=== PATIENT | male | born 1955 | race Caucasian/White ===

== ENCOUNTER 2021-03-04 11:21 | Inpatient (IN) | payer OTHER ==
[2021-03-04] MEDS ORDERED: IV FLUID CONTINUATION 550 ML IV ONE (11:26)
[2021-03-04] MEDS ORDERED: LIDOCAINE 1% INJ 10MG/ML (20 ML MDV) SQ ONE (11:37)
[2021-03-04] MEDS ORDERED: fentaNYL (PF) 50 MCG/ML 2 ML AMP IV ONE ×2 (11:40)
[2021-03-04] MEDS ORDERED: CLOPIDOGREL 75 MG TAB PO ONE (12:01)
[2021-03-04] MEDS ORDERED: NOREPINEPHRINE 4 MG in SODIUM CHLORIDE 0.9% 250 ML IV ONE (12:17)
[2021-03-04] MEDS ORDERED: IOPAMIDOL-370 125ML BTL INJ ONE (12:18)
[2021-03-04] MEDS ORDERED: ONDANSETRON 4 MG/2 ML VIAL IVP ONE (12:21)
[2021-03-04] MEDS ORDERED: TIROFIBAN 12.5MG-250ML NS 250 ML IV ONE (12:33)
[2021-03-04] MEDS ORDERED: TIROFIBAN BOLUS 12.5MG/250 ML BAG IV ONE (12:33)
[2021-03-04] MEDS ORDERED: SODIUM CHLORIDE 0.9% 1,000 ML IV ONE (12:42)
[2021-03-04] MEDS ORDERED: IOPAMIDOL-370 100ML BTL INJ ONE (12:49)
[2021-03-04] MEDS ORDERED: RX INFO: IV CONTRAST WAS GIVEN 1 EACH MISC MISCELLANE PRN (12:50)
[2021-03-04] MEDS ORDERED: NITROGLYCERIN SL TABS 0.4 MG TAB SUBLINGUAL PRN (12:50)
[2021-03-04] MEDS ORDERED: ZOLPIDEM 5 MG TAB PO PRN (12:50)
[2021-03-04] MEDS ORDERED: ATROPINE SULFATE 0.1 MG/ML 10ML SYRINGE IV PRN (12:50)
[2021-03-04] MEDS ORDERED: MAG HYDROX/AL HYDROX/SIMETH 30 ML CUP PO PRN (12:50)
--- NOTE | 2021-03-04 14:33 | CC ---
CARDIAC CATHETERIZATION REPORT INDICATION: Acute inferoposterior wall DE in a patient with known CAD, status post recent angioplasty. PROCEDURE NOTE: After obtaining informed consent, left heart catheterization and coronary angiogram were performed via the right femoral artery using standard Allyssa catheters. Patient tolerated the procedure well without any obvious immediate complications. Patient received moderate conscious sedation. Total sedation time was 13 minutes. FINDING: HEMODYNAMICS: Left ventricular end-diastolic pressure is 12 mm. There is no significant gradient across the aortic valve. LEFT VENTRICULOGRAM: Left ventriculogram was not performed. ANGIOGRAPHIC DATA: Left main coronary artery. Left main coronary artery appears calcified but is free of significant stenosis. Divides into left anterior descending coronary artery and circumflex coronary artery. There is an area of plaque rupture and a 95% stenosis involving the ostial portion of the circumflex coronary artery. LAD was previously stented both in the proximal and mid portions. In between the two stents there is a 40% to 50% stenosis. Right coronary artery is a large dominant vessel. There is a 40% mid RCA lesion. CONCLUSIONS: Three-vessel coronary artery disease as described above with patent stent within the LAD and an acute plaque rupture involving the ostial portion of the circumflex coronary artery, which is the vessel related to his myocardial infarction. Dr. Jacobs, the on- call alterations workroom clerk, is here. He evaluated the angiogram and will attempt angioplasty of the circumflex coronary artery. At the end of my procedure patient is stable hemodynamically and free of any complications. MMLAKEL / IJN: [id number] /
[2021-03-04 16:13] LABS: Glucose,Whole Blood 103 mg/dL (75-99)
[2021-03-04] MEDS: TIROFIBAN 12.5MG-250ML NS 250 ML IV SCH (16:30)
--- NOTE | 2021-03-04 17:10 | P.PRCINT ---
Percutaneous Coronary Int. - Percutaneous Coronary Intervention Percutaneous Coronary Intervention: PROCEDURES PERFORMED: Left coronary angiography, kissing balloon angioplasty of left main into LAD and circumflex bifurcation with 3.25 x 12mm NC and 3.0 x 15mm balloon respectively INDICATION: STEMI HISTORY: Patient is a pleasant 65 year old male with history of lung cancer apparently in remission, CAD with recent PCI at [facility] approximately 4 months ago who presented with acute onset chest pain at [facility] and was found to have inferoposterior TN. He was therefore transferred to [facility] and diagnostic catheterization showed patent left main into LAD stent however thrombosis at the jailed off circumflex. Patient was unsure if he had in fact been taking Plavix recently. PROCEDURE: After the risks, benefits and alternatives of the above mentioned procedure explained in detail with the patient, informed consent was obtained. Patient had already been taken to the catheterization lab and prepped and draped in usual fashion. A 6-Albanian sheath had been placed in the right femoral artery. A 6Fr FL 3.5 guide was used to engage the left main. A 0.014 BMW wire was advanced into the LAD and a 0.014 whisper wire was advanced into the circumflex. The ostium of the circumflex/ jailed stent was dilated with a 1.5 x 12 then 2.0 x 12mm balloon. Aggrastat was given secondary to thrombus burden. Next kissing balloon angioplasty was performed of the circumflex and the left main into LAD with a 3.0 x 15mm balloon in left main to circumflex and a 3.25 x 12mm NC balloon in the left main to LAD. Patient did have mild hypotension during the case which was improved with Levophed. Pre intervention there was 99% circumflex stenosis and JAQUI 2 flow and post intervention there was JAQUI 3 flow and < 10% stenosis. The patient tolerated the procedure well and hypotension had predominantly resolved, on a small dose of Levophed by the end of the case. The right femoral sheath was left in place to be pulled at a later time. Patient was transported back to the post catheterization holding area in stable condition. Conscious Sedation: Patient was monitored under the direct supervision of vision of myself for conscious sedation using Versed and fentanyl for a total duration of 53 minutes SELECTIVE CORONARY ARTERIOGRAPHY: LEFT MAIN: The left main is a large caliber vessel which bifurcates into the LAD and circumflex. There is a patent stent which extends from the mid left main into the proximal LAD without significant stenosis. LEFT ANTERIOR DESCENDING CORONARY ARTERY: LAD is a large caliber vessel which wraps around the apex. The proximal left main to LAD stent has no significant stenosis. There is a 50-60% stenosis just distal to a small to moderate caliber diagonal 1 branch. There is a long mid LAD stented segment without significant stenosis. There are otherwise mild luminal irregularities. LEFT CIRCUMFLEX CORONARY ARTERY: Left circumflex is a moderate caliber vessel with a proximal 99% stenosis at the "jailed" off ostium of the circumflex. Otherwise there are mild 20% stenosis of the mid circufmlex and 30% stenosis of the proximal OM1. RIGHT CORONARY ARTERY: Not imaged, see diagnostic cath report. FINAL IMPRESSION: 1. CAD as described above with ostial circumflex 99% thrombosis at the site of "jailed" circumflex, s/p kissing balloon angioplasty left main to LAD and circumflex. PLAN: 1. Aggressive risk factor modification per most recent ACC/AHA guidelines. 2. Continue dual antiplatelets with aspirin and Plavix for 12 months. Question if patient has been taking Plavix and thrombosis may have been related if Plavix was discontinued. Continue Aggrastat for 12 hours given thrombus burden.
[2021-03-04] MEDS: MORPHINE SULFATE 2 MG/ML SYRINGE IVP PRN (18:25)
[2021-03-05] MEDS: MORPHINE SULFATE 2 MG/ML SYRINGE IVP PRN ×2 (03:40→14:27)
[2021-03-05 06:39] LABS: African American GFR (CKD) >90 (>60 ml/min/1.73 sqM); Non-African American GFR(CKD) >90 (>60 ml/min/1.73 sqM)
--- NOTE | 2021-03-05 08:27 | XR ---
EXAMINATION TYPE: XR chest 1V portable DATE OF EXAM: 03/05/2021 COMPARISON: NONE HISTORY: Difficulty breathing, history of lung carcinoma TECHNIQUE: Single frontal view of the chest is obtained. FINDINGS: Apical pleural thickening is greater on the left than on the right, there is some volume l oss, tracheal deviation towards the left chest. There is a port in the left pectoral region, meche ca theter courses via subclavian approach to the region of the cavoatrial junction. Tumor mass is suspec celine the left hilar region. Interstitium is increased. Heart size is within normal limits. There is no pleural effusion or pneumothorax evident. IMPRESSION: Findings consistent with lung carcinoma. Interstitial lung disease.
[2021-03-05] MEDS: CLOPIDOGREL 75 MG TAB PO SCH (09:49)
[2021-03-05] MEDS: ASPIRIN 81 MG PO SCH (09:49)
--- NOTE | 2021-03-05 10:34 | P.CNPUL ---
History of Present Illness Consult date: 03/05/21 Reason for consult: hypoxemia, lung mass, other (STEMI) History of present illness: This is a 65-year-old male patient with known history of lung cancer who has been in remission, also known to have CAD with recent PCI at [facility] there was an approximately 4 months ago, and the patient presented initially to [facility] with chest pain and the patient was found to have inferior posterior DC. He was transferred to [facility] and he underwent a diagnostic catheterization and the patient was found to have patent left main to LAD stent and the patient was found to have disease involving the left circumflex with a proximal 99% stenosis and a jailed off ostium. He also had 50-60% stenosis just distal to the stent involving the LAD. There was a long mid LAD stented segment without any significant stenosis. As such, the patient underwent balloon angioplasty of the left main to LAD and circumflex and medical treatment was offered to this patient and he was estimated to the aspirin and Plavix. He is currently in intensive care unit. He is hemodynamically stable and free of any chest pain. His chest x-ray reveals a left upper lobe opacity with a volume loss probably related to a previous lung cancer treatment/radiation. The patient is also reported in the left upper chest area. Is currently on 2 L of oxygen by nasal cannula with a pulse ox of 98%. Upon further questioning, the patient is not sure of the type of the lung cancer that he had. He thinks that he to take a combination of chemotherapy and radiation therapy. He is not sure follow-up CAT scan has been done. The chest x-ray shows postradiation changes in the left upper lobe. Right lung is essentially clear. He has a congested cough. He is a smoker. Uses Spiriva at home. He is on no oxygen. He used to live around [facility] and currently he is living out of his car. He seems to be homeless at this point in time. He was at [facility] where he was staying and he was doing some fishing Review of Systems Constitutional: Denies chills, Denies fever Eyes: denies as per HPI, denies blurred vision, denies bulging eye, denies decreased vision, denies diplopia, denies discharge, denies dry eye, denies irritation, denies itching, denies pain, denies photophobia, denies loss of peripheral vision, denies loss of vision, denies tunnel vision/blind spots Ears: deny: decreased hearing, ear discharge, earache, tinnitus Ears, nose, mouth and throat: Denies headache, Denies sore throat Breasts: absent: as per HPI, gynecomastia Cardiovascular: Reports decreased exercise tolerance, Reports dyspnea on exertion Respiratory: Reports cough, Reports dyspnea, Reports wheezing Gastrointestinal: Reports as per HPI Genitourinary: Reports as per HPI Musculoskeletal: Reports as per HPI Musculoskeletal: absent: ankle pain, ankle stiffness, ankle swelling, as per HPI, elbow pain, elbow stiffness, elbow swelling, foot pain, foot stiffness, foot swelling, hand pain, hand stiffness, hand swelling, hip pain, hip stiffness, hip swelling, knee pain, knee stiffness, knee swelling, shoulder pain, shoulder stiffness, shoulder swelling, wrist pain, wrist stiffness, wrist swelling Integumentary: Reports as per HPI Neurological: Reports as per HPI Psychiatric: Reports as per HPI Endocrine: Reports as per HPI Hematologic/Lymphatic: Reports as per HPI Past Medical History Past Medical History: Coronary Artery Disease (CAD), Cancer, COPD, GERD/Reflux, Myocardial Infarction (DC), Vascular Disorder Additional Past Medical History / Comment(s): Lung cancer tx with chemo/radiation and the treatment was done at [facility] in [place]. Patient is also known to have COPD. Last Myocardial Infarction Date:: "a few months ago" History of Any Multi-Drug Resistant Organisms: None Reported Past Surgical History: Heart Catheterization With Stent Past Anesthesia/Blood Transfusion Reactions: No Reported Reaction Date of Last Stent Placement:: unkown "a month ago" Smoking Status: Current every day smoker Medications and Allergies Home Medications Medication Instructions Recorded Confirmed Type Albuterol Sulfate [Ventolin HFA] 2 puff INHALATION RT-Q6H PRN 03/04/21 03/04/21 History Clopidogrel [Plavix] 75 mg PO DAILY 03/04/21 03/04/21 History Ergocalciferol [Vitamin D2 (1250 1,250 mcg PO ALEGRE 03/04/21 03/04/21 History Mcg = 24888 Iu)] Folic Acid 1 mg PO DAILY 03/04/21 03/04/21 History Isosorbide Mononitrate ER [Imdur] 30 mg PO DAILY 03/04/21 03/04/21 History Metoprolol Tartrate [Lopressor] 25 mg PO DAILY 03/04/21 03/04/21 History Nitroglycerin Sl Tabs [Nitrostat] 0.4 mg SUBLINGUAL Q5M PRN 03/04/21 03/04/21 History Omeprazole 20 mg PO DAILY 03/04/21 03/04/21 History Simvastatin [Zocor] 40 mg PO HS 03/04/21 03/04/21 History Sucralfate [Carafate] 1 gm PO DAILY 03/04/21 03/04/21 History Tiotropium 18 Mcg/Puff [Spiriva] 1 puff INHALATION RT-DAILY 03/04/21 03/04/21 History Allergies Allergy/AdvReac Type Severity Reaction Status Date / Time No Known Allergies Allergy Verified 03/04/21 19:06 Physical Exam Vitals: Vital Signs Temp Pulse Pulse Resp BP BP Pulse Ox 03/05/21 09:00 79 12 100/56 98 03/05/21 08:00 98.4 F 72 20 91/53 95 03/05/21 07:00 73 17 98/57 91 L 03/05/21 06:00 70 16 90/48 93 L 03/05/21 05:00 75 21 91/57 92 L 03/05/21 04:00 98.3 F 67 25 H 93/51 93 L 03/05/21 03:00 67 22 95/54 93 L 03/05/21 02:00 69 22 100/59 94 L 03/05/21 01:00 68 23 112/69 92 L 03/05/21 00:18 70 20 112/69 91 L 03/05/21 00:00 98 F 73 18 101/55 94 L 03/04/21 23:00 73 22 117/71 94 L 03/04/21 22:00 70 20 121/63 94 L 03/04/21 21:00 68 22 117/63 93 L 03/04/21 20:00 98.1 F 66 15 110/65 95 03/04/21 19:00 98.4 F 72 21 109/59 95 03/04/21 18:50 68 15 109/59 95 03/04/21 18:40 69 28 H 110/53 95 03/04/21 18:30 67 27 H 115/72 96 03/04/21 18:20 66 15 115/72 95 03/04/21 18:10 62 23 114/66 96 03/04/21 18:00 65 24 106/64 96 03/04/21 17:50 74 21 106/64 93 L 03/04/21 17:40 65 6 L 117/71 96 03/04/21 17:30 62 14 117/65 96 03/04/21 17:20 68 27 H 117/65 95 03/04/21 17:10 67 23 121/64 96 03/04/21 17:00 98.4 F 64 70 16 114/72 121/64 96 03/04/21 16:50 62 20 114/72 96 03/04/21 16:40 65 14 104/74 96 03/04/21 16:30 64 15 99/64 96 03/04/21 16:20 63 7 L 99/64 96 03/04/21 16:13 27 H 03/04/21 15:15 64 18 100/56 97 03/04/21 15:10 61 16 96/51 98 03/04/21 15:05 57 L 16 101/59 98 03/04/21 15:00 59 L 16 99/55 98 03/04/21 14:55 60 16 101/58 97 03/04/21 14:50 62 16 100/60 98 03/04/21 14:45 59 L 18 97/52 99 03/04/21 14:40 60 18 98/56 98 03/04/21 14:35 60 18 101/58 98 03/04/21 14:30 60 16 103/59 98 03/04/21 14:25 58 L 18 98/65 98 03/04/21 14:20 63 16 100/55 97 03/04/21 14:15 61 16 114/55 98 03/04/21 14:10 63 18 100/54 99 03/04/21 14:05 62 16 109/53 99 03/04/21 14:00 59 L 18 119/56 98 03/04/21 13:55 60 18 113/59 99 03/04/21 13:50 59 L 16 119/56 98 03/04/21 13:45 65 16 93/53 98 03/04/21 13:40 62 16 120/56 99 03/04/21 13:35 62 16 111/52 98 03/04/21 13:30 61 16 111/52 99 Intake and Output 03/04/21 03/05/21 03/05/21 22:59 06:59 14:59 Intake Total 250 360 Output Total 200 450 0 Balance 50 -450 360 Intake: Oral 250 360 Output: Urine 200 450 0 Other: Voiding Method Urinal Urinal Urinal Weight 56.4 kg 54.3 kg Gen. appearance is calm and comfortable likely distress Head exam was generally normal. There was no scleral icterus or corneal arcus. Mucous membranes were moist. Neck was supple and without jugular venous distension, thyromegaly, or carotid bruits. Carotids were easily palpable bilaterally. There was no adenopathy. Lungs are diminished and there is scattered rhonchi and scattered expiratory wheezes throughout the lung his bilaterally. The patient support the anterior aspect of the left chest. Cardiac exam revealed the PMI to be normally situated and sized. The rhythm was regular and no extrasystoles were noted during several minutes of auscultation. The first and second heart sounds were normal and physiologic splitting of the second heart sound was noted. There were no murmurs, rubs, clicks, or gallops. Abdominal exam revealed normal bowel sounds. The abdomen was soft, non-tender, and without masses, organomegaly, or appreciable enlargement of the abdominal aorta. Examination of the extremities revealed easily palpable radial, femoral and pedal pulses. There was no cyanosis, clubbing or edema. Examination of the skin revealed no evidence of significant rashes, suspicious appearing nevi or other concerning lesions. Neurologically, the patient is awake and alert and the patient does not have any focal neurological deficit. Cranial nerves are essentially intact. Results - Laboratory Findings CBC and BMP: 03/05/21 05:29 Abnormal lab findings: Abnormal Labs 03/04/21 16:12 POC Glucose (mg/dL) 103 H - Diagnostic Findings Chest x-ray: image reviewed Assessment and Plan Plan: Cardiac catheterization the patient was found to have ostial circumflex thromboses with 99% occlusion of the vessel and the patient underwent kissing balloon angioplasty involving the left main to LAD and circumflex. Note that his LAD also had a lesion in the order of 5060% just distal to diagonal branch. During cardiac catheterization, the patient was found to have a patent stent to the left main into the LAD and the patient had a mid LAD stent that was also patent. Currently hemodynamically stable on no pressors. In normal sinus rhythm 2 chest pain, recovered 3 coronary artery disease 4 COPD 5 history of lung cancer, exact pathologic type is not known. The patient has been treated with a combination of chemoradiation therapy at [facility] in [place], [place]. 6 hyperlipidemia maintained on Zocor on outpatient basis 7 history of smoking 8 homeless Plan Post DC and angioplasty treatment per cardiology In regards to COPD, restart the patient on Spiriva and put him on albuterol nebulized treatments every 6 hours plus when necessary and provide the patient incentive spirometer. Chest x-ray was reviewed and shows postradiation changes and left upper lobe. Is not clear to me if the patient's lung cancer is currently in remission or not. Would like to get records from the hospital in regards to treatment details. 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 He thinks he received his treatment through [facility] in [facility]. Continue aspirin and Plavix restart statins with Lipitor 80 mg by mouth daily Echocardiogram to assess LV function Will follow
--- NOTE | 2021-03-05 11:45 | P.CONS ---
History of Present Illness - Reason for Consult Consult date: 03/05/21 med management - Chief Complaint consult for med management - History of Present Illness 65-year-old male patient with known history of COPD, lung cancer s/p chemo and radiation tx, in remission, CAD with recent PCI at [facility] approximately 4 months ago, presented initially to [facility] with chest pain, diaphoresis, N/v, was found to have inferior posterior OK. He was transferred to [facility] and he underwent a diagnostic catheterization, was found to have patent left main to LAD stent, stenosis involving the left circumflex with a proximal 99% stenosis and a jailed off ostium. He also had 50-60% stenosis just distal to the stent involving the LAD. He underwent balloon angioplasty of the left main to LAD and circumflex, then started on DAPT with recommendation to continue for 1 year. He is currently chest pain free. Of note he is homeless and lives in his car. Patient also has history of medical noncompliance, was not taking his medication properly. His chest x-ray reveals a left upper lobe opacity with a volume loss probably related to a previous lung cancer treatment/radiation. Review of Systems Complete review of systems performed, pertinent positives per HPI, otherwise negative Past Medical History Past Medical History: Coronary Artery Disease (CAD), Cancer, COPD, GERD/Reflux, Myocardial Infarction (OK), Vascular Disorder Additional Past Medical History / Comment(s): Lung cancer tx with chemo/radiation and the treatment was done at [facility] in [place]. Patient is also known to have COPD. Last Myocardial Infarction Date:: "a few months ago" History of Any Multi-Drug Resistant Organisms: None Reported Past Surgical History: Heart Catheterization With Stent Past Anesthesia/Blood Transfusion Reactions: No Reported Reaction Date of Last Stent Placement:: unkown "a month ago" Smoking Status: Current every day smoker Medications and Allergies Home Medications Medication Instructions Recorded Confirmed Type Albuterol Sulfate [Ventolin HFA] 2 puff INHALATION RT-Q6H PRN 03/04/21 03/04/21 History Clopidogrel [Plavix] 75 mg PO DAILY 03/04/21 03/04/21 History Ergocalciferol [Vitamin D2 (1250 1,250 mcg PO ALEGRE 03/04/21 03/04/21 History Mcg = 89806 Iu)] Folic Acid 1 mg PO DAILY 03/04/21 03/04/21 History Isosorbide Mononitrate ER [Imdur] 30 mg PO DAILY 03/04/21 03/04/21 History Metoprolol Tartrate [Lopressor] 25 mg PO DAILY 03/04/21 03/04/21 History Nitroglycerin Sl Tabs [Nitrostat] 0.4 mg SUBLINGUAL Q5M PRN 03/04/21 03/04/21 History Omeprazole 20 mg PO DAILY 03/04/21 03/04/21 History Simvastatin [Zocor] 40 mg PO HS 03/04/21 03/04/21 History Sucralfate [Carafate] 1 gm PO DAILY 03/04/21 03/04/21 History Tiotropium 18 Mcg/Puff [Spiriva] 1 puff INHALATION RT-DAILY 03/04/21 03/04/21 History Allergies Allergy/AdvReac Type Severity Reaction Status Date / Time No Known Allergies Allergy Verified 03/04/21 19:06 Physical Exam Vitals: Vital Signs Temp Pulse Pulse Resp BP BP Pulse Ox 03/05/21 10:30 75 13 93/54 97 03/05/21 10:00 71 12 92/52 97 03/05/21 09:30 73 12 91/55 99 03/05/21 09:00 79 12 100/56 98 03/05/21 08:00 98.4 F 72 20 91/53 95 03/05/21 07:00 73 17 98/57 91 L 03/05/21 06:00 70 16 90/48 93 L 03/05/21 05:00 75 21 91/57 92 L 03/05/21 04:00 98.3 F 67 25 H 93/51 93 L 03/05/21 03:00 67 22 95/54 93 L 03/05/21 02:00 69 22 100/59 94 L 03/05/21 01:00 68 23 112/69 92 L 03/05/21 00:18 70 20 112/69 91 L 03/05/21 00:00 98 F 73 18 101/55 94 L 03/04/21 23:00 73 22 117/71 94 L 03/04/21 22:00 70 20 121/63 94 L 03/04/21 21:00 68 22 117/63 93 L 03/04/21 20:00 98.1 F 66 15 110/65 95 03/04/21 19:00 98.4 F 72 21 109/59 95 03/04/21 18:50 68 15 109/59 95 03/04/21 18:40 69 28 H 110/53 95 03/04/21 18:30 67 27 H 115/72 96 03/04/21 18:20 66 15 115/72 95 03/04/21 18:10 62 23 114/66 96 03/04/21 18:00 65 24 106/64 96 03/04/21 17:50 74 21 106/64 93 L 03/04/21 17:40 65 6 L 117/71 96 03/04/21 17:30 62 14 117/65 96 03/04/21 17:20 68 27 H 117/65 95 03/04/21 17:10 67 23 121/64 96 03/04/21 17:00 98.4 F 64 70 16 114/72 121/64 96 03/04/21 16:50 62 20 114/72 96 03/04/21 16:40 65 14 104/74 96 03/04/21 16:30 64 15 99/64 96 03/04/21 16:20 63 7 L 99/64 96 03/04/21 16:13 27 H 03/04/21 15:15 64 18 100/56 97 03/04/21 15:10 61 16 96/51 98 03/04/21 15:05 57 L 16 101/59 98 03/04/21 15:00 59 L 16 99/55 98 03/04/21 14:55 60 16 101/58 97 03/04/21 14:50 62 16 100/60 98 03/04/21 14:45 59 L 18 97/52 99 03/04/21 14:40 60 18 98/56 98 03/04/21 14:35 60 18 101/58 98 03/04/21 14:30 60 16 103/59 98 03/04/21 14:25 58 L 18 98/65 98 03/04/21 14:20 63 16 100/55 97 03/04/21 14:15 61 16 114/55 98 03/04/21 14:10 63 18 100/54 99 03/04/21 14:05 62 16 109/53 99 03/04/21 14:00 59 L 18 119/56 98 03/04/21 13:55 60 18 113/59 99 03/04/21 13:50 59 L 16 119/56 98 03/04/21 13:45 65 16 93/53 98 03/04/21 13:40 62 16 120/56 99 03/04/21 13:35 62 16 111/52 98 03/04/21 13:30 61 16 111/52 99 Intake and Output 03/04/21 03/05/21 03/05/21 22:59 06:59 14:59 Intake Total 250 360 Output Total 200 450 100 Balance 50 -450 260 Intake: Oral 250 360 Output: Urine 200 450 100 Other: Voiding Method Urinal Urinal Urinal Weight 56.4 kg 54.3 kg Constitutional: No acute distress, conversant, pleasant Eyes:Anicteric sclerae, moist conjunctiva, no lid-lag, PERRLA, ENMT: Oropharynx clear, no erythema, exudates Neck: Supple, FROM, no masses, or JVD, No carotid bruits, No thyromegaly Lungs: Clear to auscultation, Clear to percussion, Normal respiratory effort, no accessory muscle use Cardiovascular: Heart regular in rate and rhythm, No murmurs, gallops, or rubs, No peripheral edema Abdominal: Soft, Nontender, no guarding, rebound or rigidity, Normoactive bowel sounds, No hepatomegaly, No splenomegaly, No palpable mass Skin: Normal temperature, tone, texture, turgor, no induration, No subcutaneous nodules, No rash, lesions, No ulcers Extremities: No digital cyanosis, No clubbing, Pedal pulses intact and symmetrical, Radial pulses intact and symmetrical, No calf tenderness Psychiatric: Alert and oriented to person, place and time, appropriate affect, intact judgement Neuro: Muscles Strength 5/5 in all 4 extremities, Sensation to light touch grossly present throughout, Cranial nerves II-XII grossly intact, no focal sensory deficits Results CBC & Chem 7: 03/05/21 05:29 Labs: Abnormal Lab Results - Last 24 Hours (Table) 03/04/21 Range/Units 16:12 POC Glucose (mg/dL) 103 H (75-99) mg/dL Assessment and Plan Plan: ST elevation OK DAPT for 12 months Continue statin Follow-up echocardiogram Cardiology following History of lung cancer. Per pulmonary, trying to obtain records COPD not in exacerbation When necessary albuterol Spiriva General weakness PT and OT Homelessness Social work consult Anticipated discharge: 2-3 days Disposition: TBD
--- NOTE | 2021-03-05 12:11 | ECHOF ---
Referral Reason:S/P stent placement MEASUREMENTS -------- HEIGHT: 167.6 cm WEIGHT: 54.0 kg BP: 100/56 RVIDd: 3.3 cm (< 3.3) IVSd: 0.9 cm (0.6 - 1.1) LVIDd: 4.6 cm (3.9 - 5.3) LVPWd: 1.2 cm (0.6 - 1.1) IVSs: 1.3 cm LVIDs: 4.0 cm LVPWs: 1.0 cm LAESV Index (A-L): 41.48 ml/m IVSd: 0.6 cm (0.6 - 1.1) LVIDd: 5.6 cm (3.9 - 5.3) LVPWd: 0.9 cm (0.6 - 1.1) IVSs: 1.4 cm LVIDs: 4.3 cm LVPWs: 1.0 cm EDV(Teich): 152 ml ESV(Teich): 81 ml EF(Teich): 46 % %FS: 24 % SV(Teich): 71 ml Ao Diam: 2.6 cm (2.0 - 3.7) AV Cusp: 2.0 cm (1.5 - 2.6) LA Diam: 3.5 cm (2.7 - 3.8) MV EXCURSION: 18.270 mm (> 18.000) MV EF SLOPE: 57 mm/s (70 - 150) EPSS: 0.5 cm MV E Vinod: 1.23 m/s MV DecT: 221 ms MV A Vinod: 0.48 m/s MV E/A Ratio: 2.59 RAP: 5.00 mmHg RVSP: 47.15 mmHg FINDINGS -------- Sinus rhythm. This was a technically adequate study. The left ventricular size is normal. Left ventricular wall thickness is normal. Overall left vent ricular systolic function is mildly impaired with, an EF between 45 - 50 %. Basal lateral LV wall m otion is hypokinetic. Basal inferior LV wall motion is hypokinetic. Mid inferior LV wall motion is hypokinetic. The right ventricle is normal in size. LA is moderately dilated 34-39 ml/m2 The right atrial size is normal. Interatrial and interventricular septum intact. The aortic valve is trileaflet, and appears structurally normal. No aortic stenosis or regurgitation. The mitral valve is normal. Mmwu-ha-beqdnftg mitral regurgitation is present. The tricuspid valve appears structurally normal. Vvuw-kg-rtygjrep tricuspid regurgitation present. There is moderate pulmonary hypertension. The right ventricular systolic pressure, as measured by Doppler, is 47.15mmHg. Trace/mild (physiologic) pulmonic regurgitation. The aortic root size is normal. IVC Not well visulized. There is a small, generalized pericardial effusion present. CONCLUSIONS -------- 1. Left ventricular wall thickness is normal. 2. Overall left ventricular systolic function is mildly impaired with, an EF between 45 - 50 %. 3. Basal lateral LV wall motion is hypokinetic. 4. Basal inferior LV wall motion is hypokinetic. 5. Mid inferior LV wall motion is hypokinetic. 6. LA is moderately dilated 34-39 ml/m2 7. The aortic valve is trileaflet, and appears structurally normal. No aortic stenosis or regurgitati on. 8. Gsih-ic-znnqoxqd mitral regurgitation is present. 9. Iqdq-er-dmqwscus tricuspid regurgitation present. 10. There is moderate pulmonary hypertension. 11. Trace/mild (physiologic) pulmonic regurgitation. 12. There is a small, generalized pericardial effusion present. PRECISION LENS TECHNICIAN: Danielle Carrizales RDCS
[2021-03-05] MEDS: IPRATROPIUM-ALBUTEROL 3 ML NEB INHALATION SCH ×3 (12:27→20:12)
[2021-03-05 13:42] VITALS: BMI 19.3
[2021-03-05] MEDS: METOPROLOL TARTRATE 25 MG TAB PO SCH (14:27)
--- NOTE | 2021-03-05 14:57 | P.PN ---
Subjective Progress Note Date: 03/05/21 This is a 65-year-old gentleman who was admitted yesterday with STEMI and had stent placement of circumflex. Patient has history of stent placement LAD. Patient is complaining of some shortness of breath and cough. Patient has history of lung cancer and radiation and chemotherapy in the past. Also has underlying COPD. His puncture site in the groin has healed well. He is not having any chest pain. His echocardiogram showed an ejection fraction of 40- 45%. Patient went into atrial fibrillation with controlled ventricular response. We'll resume his metoprolol. We'll consider putting him on a liquid is 2.5 mg by mouth twice a day patient is already on aspirin and Plavix. Apparently there is history of hemoptysis in the past. We'll watch him closely. We'll also get pulmonary consult for management of his underlying lung disease. Further recommendations depend upon the clinical course Objective - Vital Signs Vital signs: Vital Signs Temp 98.4 F 03/05/21 08:00 Pulse 75 03/05/21 10:30 Resp 13 03/05/21 10:30 BP 93/54 03/05/21 10:30 Pulse Ox 97 03/05/21 10:30 Intake & Output 03/04/21 03/05/21 03/05/21 18:59 06:59 18:59 Intake Total 585.30 250 360 Output Total 200 450 100 Balance 385.30 -200 260 Weight 56.4 kg 54.3 kg 54.3 kg Intake: IV 585.30 Oral 250 360 Output: Urine 200 450 100 Other: Voiding Method Urinal Urinal Urinal ABP, PAP, CO, CI - Last Documented Arterial Blood Pressure 104/46 - Exam GENERAL EXAM: Patient is alert and oriented and doesn't appear to be in any acute distress. Having some coughing spells HEENT: Normocephalic. Normal reaction of pupils, equal size, normal range of extraocular motion. No erythema or exudates in the throat. NECK: No masses, no nuchal rigidity. CHEST: No chest wall deformity. LUNGS: [Diminished breath sounds on the right side and some mild wheezes HEART: S1 and S2 normal with no audible mumurs or gallops. Regular rhythm, femorals equal on both sides.. ABDOMEN: No hepatosplenomegaly, normal bowel sounds, no guarding or rigidity. SKIN: No rashes CENTRAL NERVOUS SYSTEM: No focal deficits. EXTREMITIES: No cyanosis, clubbing or edema. RIGHT GROIN: The puncture site is healing well without any hematoma - Labs CBC & Chem 7: 03/05/21 05:29 Labs: Abnormal Lab Results - Last 24 Hours (Table) 03/04/21 Range/Units 16:12 POC Glucose (mg/dL) 103 H (75-99) mg/dL Assessment and Plan (1) CAD (coronary artery disease) Current Visit: Yes Status: Acute Code(s): I25.10 - ATHSCL HEART DISEASE OF [place] CORONARY ARTERY W/O ANG PCTRS SNOMED Code(s): 39816154 (2) STEMI (ST elevation myocardial infarction) Current Visit: Yes Status: Acute Code(s): I21.3 - ST ELEVATION (STEMI) MYOCARDIAL INFARCTION OF [place] S[place] SNOMED Code(s): 39432316 (3) History of lung cancer Current Visit: Yes Status: Acute Code(s): Z85.118 - PERSONAL HISTORY OF MALIGNANT NEOPLASM OF BRONCHUS AND LUNG SNOMED Code(s): 870747027 (4) COPD (chronic obstructive pulmonary disease) Current Visit: Yes Status: Acute Code(s): J44.9 - CHRONIC OBSTRUCTIVE PULMONARY DISEASE, UNSPECIFIED SNOMED Code(s): 01171796 (5) Paroxysmal atrial fibrillation Current Visit: Yes Status: Acute Code(s): I48.0 - PAROXYSMAL ATRIAL FIBRILLATION SNOMED Code(s): 297997701 Plan: Continue with beta blockers and lipid-lowering agents and aspirin and Plavix. We'll also initiate him on anticoagulation with Eliquis 2.5 mg by mouth twice a day. After 6 weeks, aspirin may be discontinued. Further recommendations depend upon clinical course
[2021-03-05 15:20] LABS: Anisocytosis Slight; Basophils % (A) 0 %; Eosinophils % (A) 0 %; HGB 9.2 gm/dL (13.0-17.5); Lymphocytes # (A) 0.4 k/uL (1.0-4.8); Lymphocytes % (A) 5 %; MCH 28.9 pg (25.0-35.0); MCHC 32.7 g/dL (31.0-37.0); MCV 88.4 fL (80.0-100.0); Mean Platelet Volume 7.2; Monocytes # (A) 0.8 k/uL (0-1.0); Monocytes % (A) 8 %; Neutrophils # (A) 7.8 k/uL (1.3-7.7); Neutrophils % (A) 85 %; Platelet Count 221 k/uL (150-450); RBC 3.17 m/uL (4.30-5.90); RDW 16.1 % (11.5-15.5); WBC 9.2 k/uL (3.8-10.6)
[2021-03-05 15:30] LABS: ALT 23 U/L (4-49); AST 144 U/L (17-59); African American GFR (CKD) >90 (>60 ml/min/1.73 sqM); Albumin 3.3 g/dL (3.5-5.0); Alkaline Phosphatase 50 U/L (38-126); Anion Gap 6 mmol/L; Blood Urea Nitrogen 11 mg/dL (9-20); Calcium 8.7 mg/dL (8.4-10.2); Carbon Dioxide 26 mmol/L (22-30); Chloride 103 mmol/L (98-107); Glucose 103 mg/dL (74-99); Non-African American GFR(CKD) >90 (>60 ml/min/1.73 sqM); Potassium 4.4 mmol/L (3.5-5.1); Sodium 135 mmol/L (137-145); Total Bilirubin 0.2 mg/dL (0.2-1.3); Total Protein 5.9 g/dL (6.3-8.2)
--- NOTE | 2021-03-05 16:09 | P.CONS ---
History of Present Illness - Reason for Consult Consult date: 03/05/21 anticoagulation and hx sclca Requesting physician: Edda Watt - History of Present Illness Mr. Strong is a 65 year old Male patient who has a known history per medical records from outside facility, of adherence and compliance. He follows Dr. Alberts (medical Oncology)at [facility] for treatment of his limited stage small cell lung cancer, diagnosed in May 2020. He underwent 3 of 4 chemotherapy cycles of cisplatin and Etoposide (These had to be administered inpatient at [facility]. His oncologic care was interrupted after cycle 3 for NSTEMI, Cardiac Cath with stent placement. He was started on Aspirin and plavix and apparently did not remain adherent to taking those medication and this resulted with his admission to [facility] this stay. Heart rate in Atrial Fib, plan was to start eliquis, however patient stated his oncologist took him off due to bleeding. During my interview he stated he was on them years and years ago and was just nauseated. Patient is very poor historian. I have reviewed all medications through [facility] and no additional anticoagulation looks to have been perscribed with the exception of aspirin and plavix in October of this year. Review of Systems ROS unobtainable: due to mental status Past Medical History Past Medical History: Coronary Artery Disease (CAD), Cancer, COPD, GERD/Reflux, Myocardial Infarction (OR), Vascular Disorder Additional Past Medical History / Comment(s): Lung cancer tx with chemo/radiation and the treatment was done at [facility] in [place]. Patient is also known to have COPD. Last Myocardial Infarction Date:: "a few months ago" History of Any Multi-Drug Resistant Organisms: None Reported Past Surgical History: Heart Catheterization With Stent Past Anesthesia/Blood Transfusion Reactions: No Reported Reaction Date of Last Stent Placement:: unkown "a month ago" Smoking Status: Current every day smoker Medications and Allergies Home Medications Medication Instructions Recorded Confirmed Type Albuterol Sulfate [Ventolin HFA] 2 puff INHALATION RT-Q6H PRN 03/04/21 03/04/21 History Clopidogrel [Plavix] 75 mg PO DAILY 03/04/21 03/04/21 History Ergocalciferol [Vitamin D2 (1250 1,250 mcg PO ALEGRE 03/04/21 03/04/21 History Mcg = 81718 Iu)] Folic Acid 1 mg PO DAILY 03/04/21 03/04/21 History Isosorbide Mononitrate ER [Imdur] 30 mg PO DAILY 03/04/21 03/04/21 History Metoprolol Tartrate [Lopressor] 25 mg PO DAILY 03/04/21 03/04/21 History Nitroglycerin Sl Tabs [Nitrostat] 0.4 mg SUBLINGUAL Q5M PRN 03/04/21 03/04/21 History Omeprazole 20 mg PO DAILY 03/04/21 03/04/21 History Simvastatin [Zocor] 40 mg PO HS 03/04/21 03/04/21 History Sucralfate [Carafate] 1 gm PO DAILY 03/04/21 03/04/21 History Tiotropium 18 Mcg/Puff [Spiriva] 1 puff INHALATION RT-DAILY 03/04/21 03/04/21 History Allergies Allergy/AdvReac Type Severity Reaction Status Date / Time No Known Allergies Allergy Verified 03/04/21 19:06 Physical Exam Vitals: Vital Signs Temp Pulse Pulse Resp BP BP Pulse Ox 03/05/21 10:30 75 13 93/54 97 03/05/21 10:00 71 12 92/52 97 03/05/21 09:30 73 12 91/55 99 03/05/21 09:00 79 12 100/56 98 03/05/21 08:00 98.4 F 72 20 91/53 95 03/05/21 07:00 73 17 98/57 91 L 03/05/21 06:00 70 16 90/48 93 L 03/05/21 05:00 75 21 91/57 92 L 03/05/21 04:00 98.3 F 67 25 H 93/51 93 L 03/05/21 03:00 67 22 95/54 93 L 03/05/21 02:00 69 22 100/59 94 L 03/05/21 01:00 68 23 112/69 92 L 03/05/21 00:18 70 20 112/69 91 L 03/05/21 00:00 98 F 73 18 101/55 94 L 03/04/21 23:00 73 22 117/71 94 L 03/04/21 22:00 70 20 121/63 94 L 03/04/21 21:00 68 22 117/63 93 L 03/04/21 20:00 98.1 F 66 15 110/65 95 03/04/21 19:00 98.4 F 72 21 109/59 95 03/04/21 18:50 68 15 109/59 95 03/04/21 18:40 69 28 H 110/53 95 03/04/21 18:30 67 27 H 115/72 96 03/04/21 18:20 66 15 115/72 95 03/04/21 18:10 62 23 114/66 96 03/04/21 18:00 65 24 106/64 96 03/04/21 17:50 74 21 106/64 93 L 03/04/21 17:40 65 6 L 117/71 96 03/04/21 17:30 62 14 117/65 96 03/04/21 17:20 68 27 H 117/65 95 03/04/21 17:10 67 23 121/64 96 03/04/21 17:00 98.4 F 64 70 16 114/72 121/64 96 03/04/21 16:50 62 20 114/72 96 03/04/21 16:40 65 14 104/74 96 03/04/21 16:30 64 15 99/64 96 03/04/21 16:20 63 7 L 99/64 96 03/04/21 16:13 27 H Intake and Output 03/05/21 03/05/21 03/05/21 06:59 14:59 22:59 Intake Total 360 Output Total 450 100 Balance -450 260 Intake: Oral 360 Output: Urine 450 100 Other: Voiding Method Urinal Urinal Weight 54.3 kg 54.3 kg Very poor historian Alert NAD Heart: Irreg Lungs: Diminished Rhonchi Abdomen: Soft Ext: Pedal Results CBC & Chem 7: 03/05/21 15:01 03/05/21 15:01 Labs: Abnormal Lab Results - Last 24 Hours (Table) 03/04/21 03/05/21 03/05/21 Range/Units 16:12 15:01 15:01 RBC 3.17 L (4.30-5.90) m/uL Hgb 9.2 L (13.0-17.5) gm/dL Hct 28.0 L (39.0-53.0) % RDW 16.1 H (11.5-15.5) % Neutrophils # 7.8 H (1.3-7.7) k/uL Lymphocytes # 0.4 L (1.0-4.8) k/uL Sodium 135 L (137-145) mmol/L Glucose 103 H (74-99) mg/dL POC Glucose (mg/dL) 103 H (75-99) mg/dL AST 144 H (17-59) U/L Total Protein 5.9 L (6.3-8.2) g/dL Albumin 3.3 L (3.5-5.0) g/dL Assessment and Plan (1) CAD (coronary artery disease) Current Visit: Yes Status: Acute Code(s): I25.10 - ATHSCL HEART DISEASE OF [place] CORONARY ARTERY W/O ANG PCTRS SNOMED Code(s): 03411775 (2) History of lung cancer Current Visit: Yes Status: Acute Code(s): Z85.118 - PERSONAL HISTORY OF MALIGNANT NEOPLASM OF BRONCHUS AND LUNG SNOMED Code(s): 068337624 (3) Paroxysmal atrial fibrillation Current Visit: Yes Status: Acute Code(s): I48.0 - PAROXYSMAL ATRIAL FIBRILLATION SNOMED Code(s): 380547952 Plan: We have been asked to evaluate for safety regarding anticoagulation with eliquis for Atrial Fib, apparently patient stated his oncologist had stopped in past for bleeding, although I could not find record of this in his medical oncologists notes. He does have normocytic anemia: - Wll check anemia baseline panely, which is likely secondary to Chronic inflammation and small cell lung cancer - Would monitor closely and serial H and H for any signs of bleeding when initiating eliquis - No signs of obvious bleeding at this time.
[2021-03-05 17:25] LABS: Partial Thromboplastin Time 26.9 sec (22.0-30.0); Prothrombin Time 10.8 sec (9.0-12.0)
[2021-03-05] MEDS ORDERED: BENZOCAINE/MENTHOL LOZENG 1 EACH LOZENGE MUCOUS MEM PRN (18:28)
[2021-03-05] MEDS: SODIUM CHLORIDE 0.9% 1,000 ML IV SCH (18:39)
[2021-03-05] MEDS: APIXABAN 2.5 MG TABLET PO SCH (20:22)
[2021-03-05] MEDS: ATORVASTATIN 80 MG TAB PO SCH (20:22)
[2021-03-06] MEDS: SODIUM CHLORIDE 0.9% 1,000 ML IV SCH ×2 (02:38→21:45)
[2021-03-06] MEDS: MORPHINE SULFATE 2 MG/ML SYRINGE IVP PRN ×2 (02:38→09:39)
[2021-03-06] MEDS: TIROFIBAN 12.5MG-250ML NS 250 ML IV SCH (03:48)
[2021-03-06 06:18] LABS: ALT 17 U/L (4-49); AST 91 U/L (17-59); African American GFR (CKD) >90 (>60 ml/min/1.73 sqM); Alkaline Phosphatase 50 U/L (38-126); Anion Gap 5 mmol/L; Blood Urea Nitrogen 12 mg/dL (9-20); Calcium 8.6 mg/dL (8.4-10.2); Carbon Dioxide 22 mmol/L (22-30); Chloride 106 mmol/L (98-107); Glucose 106 mg/dL (74-99); Non-African American GFR(CKD) >90 (>60 ml/min/1.73 sqM); Potassium 4.2 mmol/L (3.5-5.1); Sodium 133 mmol/L (137-145); Total Bilirubin 0.5 mg/dL (0.2-1.3); Total Protein 5.5 g/dL (6.3-8.2)
[2021-03-06 06:26] LABS: Basophils % (A) 0 %; Eosinophils # (A) 0.1 k/uL (0-0.7); Eosinophils % (A) 1 %; HCT 28.2 % (39.0-53.0); Lymphocytes # (A) 0.7 k/uL (1.0-4.8); Lymphocytes % (A) 8 %; MCH 29.2 pg (25.0-35.0); MCHC 31.8 g/dL (31.0-37.0); Mean Platelet Volume 7.4; Monocytes # (A) 0.8 k/uL (0-1.0); Monocytes % (A) 9 %; Neutrophils # (A) 6.8 k/uL (1.3-7.7); Neutrophils % (A) 79 %; Platelet Count 222 k/uL (150-450); RBC 3.07 m/uL (4.30-5.90); RDW 15.8 % (11.5-15.5); WBC 8.6 k/uL (3.8-10.6)
[2021-03-06] MEDS: IPRATROPIUM-ALBUTEROL 3 ML NEB INHALATION SCH ×4 (09:18→22:06)
[2021-03-06] MEDS: ASPIRIN 81 MG PO SCH (09:33)
[2021-03-06] MEDS: APIXABAN 2.5 MG TABLET PO SCH ×2 (09:33→21:47)
[2021-03-06] MEDS: CLOPIDOGREL 75 MG TAB PO SCH (09:34)
[2021-03-06] MEDS: METOPROLOL TARTRATE 25 MG TAB PO SCH (09:34)
--- NOTE | 2021-03-06 09:57 | P.PN ---
Subjective Progress Note Date: 03/06/21 This is a 65-year-old male patient with known history of lung cancer who has been in remission, also known to have CAD with recent PCI at [facility] there was an approximately 4 months ago, and the patient presented initially to [facility] with chest pain and the patient was found to have inferior posterior CA. He was transferred to [facility] and he underwent a diagnostic catheterization and the patient was found to have patent left main to LAD stent and the patient was found to have disease involving the left circumflex with a proximal 99% stenosis and a jailed off ostium. He also had 50-60% stenosis just distal to the stent involving the LAD. There was a long mid LAD stented segment without any significant stenosis. As such, the patient underwent balloon angioplasty of the left main to LAD and circumflex and medical treatment was offered to this patient and he was estimated to the aspirin and Plavix. He is currently in intensive care unit. He is hemodynamically stable and free of any chest pain. His chest x-ray reveals a left upper lobe opacity with a volume loss probably related to a previous lung cancer treatment/radiation. The patient is also reported in the left upper chest area. Is currently on 2 L of oxygen by nasal cannula with a pulse ox of 98%. Upon further questioning, the patient is not sure of the type of the lung cancer that he had. He thinks that he to take a combination of chemotherapy and radiation therapy. He is not sure follow-up CAT scan has been done. The chest x-ray shows postradiation changes in the left upper lobe. Right lung is essentially clear. He has a congested cough. He is a smoker. Uses Spiriva at home. He is on no oxygen. He used to live around [facility] and currently he is living out of his car. He seems to be homeless at this point in time. He was at [facility] where he was staying and he was doing some fishing On today's evaluation of 03/06/2021 the patient wants to leave knowing that he lives in his car and his hardest part somewhere in local park. In any rate, his free of any chest pain. Is a very poor historian still. He is unable to recall or give me further details on his previous treatment of lung cancer. His cardiac rhythm is sinus for now. I'm not sure why this patient was started on anticoagulation. He was not documented to be in atrial fibrillation. Also, his reliability of take any form of anticoagulants is extremely poor. As mentioned, he lives out of his car and is currently homeless. I think certified social workers in health care need to consult on this patient. In terms of his hemodynamics, he is normotensive. He is on 2 L about 2 by nasal cannula with a pulse ox of 97%. No signs of any respiratory distress. No further information on his previous history of lung cancer. He uses Spiriva at home and this was to be restarted. He is currently using DuoNeb bilateral bases and he was also given an incentive spirometer. Objective - Vital Signs Vital signs: Vital Signs Temp 98.5 F 03/06/21 04:00 Pulse 80 03/06/21 09:31 Resp 19 03/06/21 08:00 BP 91/48 03/06/21 08:00 Pulse Ox 97 03/06/21 08:00 Intake & Output 03/05/21 03/06/21 03/06/21 18:59 06:59 18:59 Intake Total 780 825 75 Output Total 200 950 300 Balance 580 -125 -225 Weight 54.3 kg 50.7 kg Intake: Intake, IV Titration 825 75 Amount Sodium Chloride 0.9% 1, 825 75 000 ml @ 75 mls/hr IV . [id number] [facility] Rx#:[id number] Oral 780 Output: Urine 200 950 300 Other: Voiding Method Urinal Urinal Urinal ABP, PAP, CO, CI - Last Documented Arterial Blood Pressure 104/46 - Exam Gen. appearance is calm and comfortable likely distress, currently on 2 L of oxygen by nasal cannula Head exam was generally normal. There was no scleral icterus or corneal arcus. Mucous membranes were moist. Neck was supple and without jugular venous distension, thyromegaly, or carotid bruits. Carotids were easily palpable bilaterally. There was no adenopathy. Lungs are diminished and there is scattered rhonchi and scattered expiratory wheezes throughout the lung his bilaterally. The patient support the anterior aspect of the left chest. Cardiac exam revealed the PMI to be normally situated and sized. The rhythm was regular and no extrasystoles were noted during several minutes of auscultation. The first and second heart sounds were normal and physiologic splitting of the second heart sound was noted. There were no murmurs, rubs, clicks, or gallops. Abdominal exam revealed normal bowel sounds. The abdomen was soft, non-tender, and without masses, organomegaly, or appreciable enlargement of the abdominal aorta. Examination of the extremities revealed easily palpable radial, femoral and pedal pulses. There was no cyanosis, clubbing or edema. Examination of the skin revealed no evidence of significant rashes, suspicious appearing nevi or other concerning lesions. Neurologically, the patient is awake and alert and the patient does not have any focal neurological deficit. Cranial nerves are essentially intact. - Labs CBC & Chem 7: 03/06/21 05:18 03/06/21 05:18 Labs: Abnormal Lab Results - Last 24 Hours (Table) 03/05/21 03/05/21 03/06/21 Range/Units 15:01 15:01 05:18 RBC 3.17 L 3.07 L (4.30-5.90) m/uL Hgb 9.2 L 9.0 L (13.0-17.5) gm/dL Hct 28.0 L 28.2 L (39.0-53.0) % RDW 16.1 H 15.8 H (11.5-15.5) % Neutrophils # 7.8 H (1.3-7.7) k/uL Lymphocytes # 0.4 L 0.7 L (1.0-4.8) k/uL Sodium 135 L (137-145) mmol/L Glucose 103 H (74-99) mg/dL AST 144 H (17-59) U/L Total Protein 5.9 L (6.3-8.2) g/dL Albumin 3.3 L (3.5-5.0) g/dL 03/06/21 Range/Units 05:18 RBC (4.30-5.90) m/uL Hgb (13.0-17.5) gm/dL Hct (39.0-53.0) % RDW (11.5-15.5) % Neutrophils # (1.3-7.7) k/uL Lymphocytes # (1.0-4.8) k/uL Sodium 133 L (137-145) mmol/L Glucose 106 H (74-99) mg/dL AST 91 H (17-59) U/L Total Protein 5.5 L (6.3-8.2) g/dL Albumin 3.0 L (3.5-5.0) g/dL Assessment and Plan Plan: 1 STEMI - Cardiac catheterization the patient was found to have ostial circumflex thromboses with 99% occlusion of the vessel and the patient underwent kissing balloon angioplasty involving the left main to LAD and circumflex. Note that his LAD also had a lesion in the order of 5060% just distal to diagonal branch. During cardiac catheterization, the patient was found to have a patent stent to the left main into the LAD and the patient had a mid LAD stent that was also patent. Currently hemodynamically stable on no pressors. In normal sinus rhythm. Echocardiac Freddie showed an ejection fraction of 45-50% along with [id number]-bo-mjwcdcbi mitral regurgitation. He also had mild to moderate tricuspid regurgitation. Pulmonary artery pressures are moderately elevated at 47. The patient is currently free of any chest pain. He is on antiplatelet agents and he is receiving a combination of aspirin and Plavix for now. No evidence of any atrial fibrillation. 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 6 hyperlipidemia maintained on Zocor on outpatient basis 7 history of smoking 8 homeless Plan Post CA and angioplasty treatment per cardiology Restarted Spiriva Discontinue the anticoagulation with Eliquis as the patient does not have any objective evidence of atrial fibrillation. At the same time the reliability on taking anticoagulants a combination of dual antiplatelet agents extremely poor. Chest x-ray was reviewed and shows postradiation changes and left upper lobe. Is not clear to me if the patient's lung cancer is currently in remission or not. Would like to get records from the hospital in regards to treatment details. 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 He thinks he received his treatment through [facility] in [facility]. Continue aspirin and Plavix restart statins with Lipitor 80 mg by mouth daily Echocardiogram to assess LV function , this has been noted and the patient has an ejection fraction of 45% Will follow
--- NOTE | 2021-03-06 15:02 | P.PN ---
Subjective Progress Note Date: 03/06/21 Principal diagnosis: IA Patient doing well, no chest pain or shortness of breath. He is asking to leave the hospital back to his car. No overnight events. Objective - Vital Signs Vital signs: Vital Signs Temp 98.0 F 03/06/21 12:00 Pulse 82 03/06/21 13:16 Resp 26 H 03/06/21 13:00 BP 101/53 03/06/21 13:00 Pulse Ox 90 L 03/06/21 13:00 Intake & Output 03/05/21 03/06/21 03/06/21 18:59 06:59 18:59 Intake Total 780 825 645 Output Total 200 950 600 Balance 580 -125 45 Weight 54.3 kg 50.7 kg Intake: Intake, IV Titration 825 285 Amount Sodium Chloride 0.9% 1, 825 285 000 ml @ 75 mls/hr IV . [id number] [facility] Rx#:[id number] Oral 780 360 Output: Urine 200 950 600 Other: Voiding Method Urinal Urinal Urinal ABP, PAP, CO, CI - Last Documented Arterial Blood Pressure 104/46 - Exam Constitutional: No acute distress, conversant, pleasant Eyes:Anicteric sclerae, moist conjunctiva, no lid-lag, PERRLA, ENMT: Oropharynx clear, no erythema, exudates Neck: Supple, FROM, no masses, or JVD, No carotid bruits, No thyromegaly Lungs: Clear to auscultation, Clear to percussion, Normal respiratory effort, no accessory muscle use Cardiovascular: Heart regular in rate and rhythm, No murmurs, gallops, or rubs, No peripheral edema Abdominal: Soft, Nontender, no guarding, rebound or rigidity, Normoactive bowel sounds, No hepatomegaly, No splenomegaly, No palpable mass Skin: Normal temperature, tone, texture, turgor, no induration, No subcutaneous nodules, No rash, lesions, No ulcers Extremities: No digital cyanosis, No clubbing, Pedal pulses intact and symmetrical, Radial pulses intact and symmetrical, No calf tenderness Psychiatric: Alert and oriented to person, place and time, appropriate affect, intact judgement Neuro: Muscles Strength 5/5 in all 4 extremities, Sensation to light touch grossly present throughout, Cranial nerves II-XII grossly intact, no focal sensory deficits - Labs CBC & Chem 7: 03/06/21 05:18 03/06/21 05:18 Labs: Abnormal Lab Results - Last 24 Hours (Table) 03/05/21 03/05/21 03/06/21 Range/Units 15:01 15:01 05:18 RBC 3.17 L 3.07 L (4.30-5.90) m/uL Hgb 9.2 L 9.0 L (13.0-17.5) gm/dL Hct 28.0 L 28.2 L (39.0-53.0) % RDW 16.1 H 15.8 H (11.5-15.5) % Neutrophils # 7.8 H (1.3-7.7) k/uL Lymphocytes # 0.4 L 0.7 L (1.0-4.8) k/uL Sodium 135 L (137-145) mmol/L Glucose 103 H (74-99) mg/dL AST 144 H (17-59) U/L Total Protein 5.9 L (6.3-8.2) g/dL Albumin 3.3 L (3.5-5.0) g/dL 03/06/21 Range/Units 05:18 RBC (4.30-5.90) m/uL Hgb (13.0-17.5) gm/dL Hct (39.0-53.0) % RDW (11.5-15.5) % Neutrophils # (1.3-7.7) k/uL Lymphocytes # (1.0-4.8) k/uL Sodium 133 L (137-145) mmol/L Glucose 106 H (74-99) mg/dL AST 91 H (17-59) U/L Total Protein 5.5 L (6.3-8.2) g/dL Albumin 3.0 L (3.5-5.0) g/dL Assessment and Plan Plan: ST elevation [place] DAPT for 12 months Continue statin Echocardiogram reported, reviewed Cardiology following History of lung cancer. Per pulmonary, unclear if residual finding on the chest x-ray is old scarring versus residual tumor. COPD not in exacerbation When necessary albuterol Spiriva General weakness PT and OT Homelessness Social work consult Anticipated discharge: 2-3 days Disposition: TBD
[2021-03-06 16:10] LABS: % Iron Saturation 3.82 (15.00-50.00); Folate, Serum 10.5 ng/mL (4.40-31.00)
[2021-03-06] MEDS: ACETAMINOPHEN TAB 500 MG TAB PO PRN (16:24)
--- NOTE | 2021-03-06 16:24 | P.PN ---
Subjective Progress Note Date: 03/06/21 This is a 65-year-old gentleman who was admitted yesterday with STEMI and had stent placement of circumflex. Patient has history of stent placement LAD. Patient is complaining of some shortness of breath and cough. Patient has history of lung cancer and radiation and chemotherapy in the past. Also has underlying COPD. His puncture site in the groin has healed well. He is not having any chest pain. His echocardiogram showed an ejection fraction of 40- 45%. Patient went into atrial fibrillation with controlled ventricular response. We'll resume his metoprolol. We'll consider putting him on a liquid is 2.5 mg by mouth twice a day patient is already on aspirin and Plavix. Apparently there is history of hemoptysis in the past. We'll watch him closely. We'll also get pulmonary consult for management of his underlying lung disease. Further recommendations depend upon the clinical course. 03/06/2011: This patient was admitted to the hospital with STEMI and had stent placement of the circumflex. Last night, I was called by the nurse that patient went into atrial fibrillation. He was put on beta shankar and anti-cognition therapy. Today patient seemed to be in sinus rhythm. There appears to be a question whether patient had atrial fibrillation or not. The physician president took him off anticoagulation because of no proof of atrial fibrillation and patient's possible noncompliance. He seemed to be doing okay. He was to be discharged home tomorrow. His lungs appeared to be clear. Heart is regular. Echo showed mildly impaired LV function. If patient is stable, patient will be discharged home by tomorrow Objective - Vital Signs Vital signs: Vital Signs Temp 98.0 F 03/06/21 12:00 Pulse 82 03/06/21 13:16 Resp 26 H 03/06/21 13:00 BP 101/53 03/06/21 13:00 Pulse Ox 90 L 03/06/21 13:00 Intake & Output 03/05/21 03/06/21 03/06/21 18:59 06:59 18:59 Intake Total 780 825 685 Output Total 139 508 2448 Balance 433 -125 -849 Weight 54.3 kg 50.7 kg Intake: IV 40 Sodium Chloride 0.9% 1, 40 000 ml @ 75 mls/hr IV . [id number] [facility] Rx#:[id number] Intake, IV Titration 825 285 Amount Sodium Chloride 0.9% 1, 825 285 000 ml @ 75 mls/hr IV . [id number] [facility] Rx#:[id number] Oral 780 360 Output: Urine 798 254 4200 Other: Voiding Method Urinal Urinal Urinal ABP, PAP, CO, CI - Last Documented Arterial Blood Pressure 104/46 - Exam GENERAL EXAM: Patient is alert and oriented and doesn't appear to be in any acute distress. Having some coughing spells HEENT: Normocephalic. Normal reaction of pupils, equal size, normal range of extraocular motion. No erythema or exudates in the throat. NECK: No masses, no nuchal rigidity. CHEST: No chest wall deformity. LUNGS: [Diminished breath sounds on the right side and some mild wheezes HEART: S1 and S2 normal with no audible mumurs or gallops. Regular rhythm, femorals equal on both sides.. ABDOMEN: No hepatosplenomegaly, normal bowel sounds, no guarding or rigidity. SKIN: No rashes CENTRAL NERVOUS SYSTEM: No focal deficits. EXTREMITIES: No cyanosis, clubbing or edema. RIGHT GROIN: The puncture site is healing well without any hematoma - Labs CBC & Chem 7: 03/06/21 05:18 03/06/21 05:18 Labs: Abnormal Lab Results - Last 24 Hours (Table) 03/05/21 03/06/21 03/06/21 Range/Units 15:01 05:18 05:18 RBC 3.07 L (4.30-5.90) m/uL Hgb 9.0 L (13.0-17.5) gm/dL Hct 28.2 L (39.0-53.0) % RDW 15.8 H (11.5-15.5) % Lymphocytes # 0.7 L (1.0-4.8) k/uL Sodium 133 L (137-145) mmol/L Glucose 106 H (74-99) mg/dL Iron 10 L (65-175) ug/dL % Saturation 3.82 L (15.00-50.00) Transferrin 185.0 L (204.0-354.0) mg/dL Ferritin 336.0 H (22.0-322.0) ng/mL AST 91 H (17-59) U/L Total Protein 5.5 L (6.3-8.2) g/dL Albumin 3.0 L (3.5-5.0) g/dL Vitamin B12 181.0 L (200.0-944.0) pg/mL Assessment and Plan (1) CAD (coronary artery disease) Current Visit: Yes Status: Acute Code(s): I25.10 - ATHSCL HEART DISEASE OF [place] CORONARY ARTERY W/O ANG PCTRS SNOMED Code(s): 10468407 (2) STEMI (ST elevation myocardial infarction) Current Visit: Yes Status: Acute Code(s): I21.3 - ST ELEVATION (STEMI) MYOCARDIAL INFARCTION OF [place] SNOMED Code(s): 75815626 (3) History of lung cancer Current Visit: Yes Status: Acute Code(s): Z85.118 - PERSONAL HISTORY OF MALIGNANT NEOPLASM OF BRONCHUS AND LUNG SNOMED Code(s): 097240798 (4) COPD (chronic obstructive pulmonary disease) Current Visit: Yes Status: Acute Code(s): J44.9 - CHRONIC OBSTRUCTIVE PULMONARY DISEASE, UNSPECIFIED SNOMED Code(s): 33486996 (5) Paroxysmal atrial fibrillation Current Visit: Yes Status: Acute Code(s): I48.0 - PAROXYSMAL ATRIAL FIBRILLATION SNOMED Code(s): 534834280 Plan: Patient is relatively stable. There is question of atrial fibrillation. Off anticoagulation because of lack of proof atrial fibrillation and concern regarding patient's complaints. He patient remains stable, patient could be discharged from tomorrow
--- NOTE | 2021-03-06 18:25 | P.PN ---
Subjective Progress Note Date: 03/06/21 Principal diagnosis: Afib, Stent clotting B12 is severely deficient, work-up placed for further evaluation of pernicious anemia. A component of Iron deficiency and Inflammation also evident in initial anemia work-up. Patient is moving out of ICU today. Objective - Vital Signs Vital signs: Vital Signs Temp 98.5 F 03/06/21 16:00 Pulse 80 03/06/21 16:00 Resp 17 03/06/21 16:00 BP 105/59 03/06/21 16:00 Pulse Ox 92 L 03/06/21 16:00 Intake & Output 03/05/21 03/06/21 03/06/21 18:59 06:59 18:59 Intake Total 780 825 685 Output Total 665 142 8886 Balance 580 -125 -365 Weight 54.3 kg 50.7 kg Intake: IV 40 Sodium Chloride 0.9% 1, 40 000 ml @ 75 mls/hr IV . [id number] [facility] Rx#:[id number] Intake, IV Titration 825 285 Amount Sodium Chloride 0.9% 1, 825 285 000 ml @ 75 mls/hr IV . [id number] [facility] Rx#:[id number] Oral 780 360 Output: Urine 353 801 0527 Other: Voiding Method Urinal Urinal Urinal ABP, PAP, CO, CI - Last Documented Arterial Blood Pressure 104/46 - Exam poor historian Awake Appers Malnourished Neck:eccymosis Eccymosis bilateral Lungs: Diminished Hert: Irr Abdomen: Soft Ext: no edema - Labs CBC & Chem 7: 03/06/21 05:18 03/06/21 05:18 Labs: Abnormal Lab Results - Last 24 Hours (Table) 03/05/21 03/06/21 03/06/21 Range/Units 15:01 05:18 05:18 RBC 3.07 L (4.30-5.90) m/uL Hgb 9.0 L (13.0-17.5) gm/dL Hct 28.2 L (39.0-53.0) % RDW 15.8 H (11.5-15.5) % Lymphocytes # 0.7 L (1.0-4.8) k/uL Sodium 133 L (137-145) mmol/L Glucose 106 H (74-99) mg/dL Iron 10 L (65-175) ug/dL % Saturation 3.82 L (15.00-50.00) Transferrin 185.0 L (204.0-354.0) mg/dL Ferritin 336.0 H (22.0-322.0) ng/mL AST 91 H (17-59) U/L Total Protein 5.5 L (6.3-8.2) g/dL Albumin 3.0 L (3.5-5.0) g/dL Vitamin B12 181.0 L (200.0-944.0) pg/mL Assessment and Plan (1) CAD (coronary artery disease) Current Visit: Yes Status: Acute Code(s): I25.10 - ATHSCL HEART DISEASE OF [place] CORONARY ARTERY W/O ANG PCTRS SNOMED Code(s): 85208019 (2) History of lung cancer Current Visit: Yes Status: Acute Code(s): Z85.118 - PERSONAL HISTORY OF MALIGNANT NEOPLASM OF BRONCHUS AND LUNG SNOMED Code(s): 868758837 (3) Paroxysmal atrial fibrillation Current Visit: Yes Status: Acute Code(s): I48.0 - PAROXYSMAL ATRIAL FIBRILLATION SNOMED Code(s): 438426130 Plan: We have been asked to evaluate for safety regarding anticoagulation with eliquis for Atrial Fib, apparently patient stated his oncologist had stopped in past for bleeding, although I could not find record of this in his medical oncologists notes. He does have normocytic anemia: - Severe B12 Deficiency, further work-up for pernicious anemia - Add B12 x5 days, then monthly - Add Folic Acid - COmponent of Iron Deficiency, unknown where - possible malignancy related - PO Iron initiated Patient has a difficult time remaining adherent to recommendations of his physicians, unknown if he has actually followed up with his primary oncologisr since October and patient doesnt know He continues on Eliquis and will continue to monitor and follow trending CBCs
[2021-03-06] MEDS: CYANOCOBALAMIN 1,000 MCG/ML 1 ML VIAL IM SCH (19:17)
[2021-03-06] MEDS: ATORVASTATIN 80 MG TAB PO SCH (21:47)
[2021-03-07 05:44] VITALS: RESP 16
[2021-03-07 06:36] LABS: Reticulocyte % 2.1 % (0.5-2.0)
[2021-03-07 07:17] LABS: Anisocytosis Slight; HCT 27.6 % (39.0-53.0); HGB 9.3 gm/dL (13.0-17.5); MCH 29.5 pg (25.0-35.0); MCHC 33.6 g/dL (31.0-37.0); MCV 87.8 fL (80.0-100.0); Mean Platelet Volume 7.3; Platelet Count 270 k/uL (150-450); RBC 3.15 m/uL (4.30-5.90); RDW 16.3 % (11.5-15.5); WBC 8.2 k/uL (3.8-10.6)
[2021-03-07] MEDS ORDERED: FERROUS SULFATE 325 MG TAB PO SCH (07:30)
[2021-03-07] MEDS: IPRATROPIUM-ALBUTEROL 3 ML NEB INHALATION SCH ×2 (08:20→11:49)
[2021-03-07] MEDS ORDERED: FOLIC ACID 1 MG TAB PO SCH (09:00)
--- NOTE | 2021-03-07 09:18 | P.PN ---
Subjective Progress Note Date: 03/07/21 Principal diagnosis: Afib, Stent clotting Patient continues on Anticoagulation and Supplements. Hemoglobin is stable. It is recommended he has GI evaluation after discharge. 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 Objective - Vital Signs Vital signs: Vital Signs Temp 98.5 F 03/07/21 04:00 Pulse 80 03/07/21 08:33 Resp 16 03/07/21 04:00 BP 95/52 03/07/21 04:00 Pulse Ox 95 03/07/21 04:00 Intake & Output 03/06/21 03/07/21 03/07/21 18:59 06:59 18:59 Intake Total 720 225 240 Output Total 1050 450 Balance -330 -225 240 Weight 53.5 kg Intake: IV 75 25 Sodium Chloride 0.9% 1, 75 25 000 ml @ 25 mls/hr IV . Q24H [facility] Rx#:[id number] Intake, IV Titration 285 Amount Sodium Chloride 0.9% 1, 285 000 ml @ 25 mls/hr IV . Q24H [facility] Rx#:[id number] Oral 360 200 240 Output: Urine 1050 450 Other: Voiding Method Urinal Urinal ABP, PAP, CO, CI - Last Documented Arterial Blood Pressure 104/46 - Exam poor historian Awake Appers Malnourished Neck:eccymosis Eccymosis bilateral Lungs: Diminished Hert: Irr Abdomen: Soft Ext: no edema - Labs CBC & Chem 7: 03/07/21 06:03 03/06/21 05:18 Labs: Abnormal Lab Results - Last 24 Hours (Table) 03/05/21 03/07/21 Range/Units 15:01 06:03 RBC 3.15 L (4.30-5.90) m/uL Hgb 9.3 L (13.0-17.5) gm/dL Hct 27.6 L (39.0-53.0) % RDW 16.3 H (11.5-15.5) % Retic Count 2.1 H (0.5-2.0) % Iron 10 L (65-175) ug/dL % Saturation 3.82 L (15.00-50.00) Transferrin 185.0 L (204.0-354.0) mg/dL Ferritin 336.0 H (22.0-322.0) ng/mL Vitamin B12 181.0 L (200.0-944.0) pg/mL Assessment and Plan (1) CAD (coronary artery disease) Status: Acute Code(s): I25.10 - ATHSCL HEART DISEASE OF [place] CORONARY ARTERY W/O ANG PCTRS SNOMED Code(s): 45321701 (2) History of lung cancer Status: Acute Code(s): Z85.118 - PERSONAL HISTORY OF MALIGNANT NEOPLASM OF BRONCHUS AND LUNG SNOMED Code(s): 843829754 (3) Paroxysmal atrial fibrillation Status: Acute Code(s): I48.0 - PAROXYSMAL ATRIAL FIBRILLATION SNOMED Code(s): 185626874 Plan: We have been asked to evaluate for safety regarding anticoagulation with eliquis for Atrial Fib, apparently patient stated his oncologist had stopped in past for bleeding, although I could not find record of this in his medical oncologists notes. He does have normocytic anemia: - Severe B12 Deficiency, further work-up for pernicious anemia - Add B12 x5 days, then monthly - Add Folic Acid - COmponent of Iron Deficiency, unknown where - possible malignancy related - PO Iron initiated Patient has a difficult time remaining adherent to recommendations of his physicians, unknown if he has actually followed up with his primary oncologisr since October and patient doesnt know He continues on Eliquis and will continue to monitor and follow trending CBCs CBC stable today, no signs of bleeding. Recommendations at discharge: - GI evaluation - Follow-up with his primary oncologist for continuation of B12 injections and monitoring of his small cell lung cancer
[2021-03-07] MEDS: ASPIRIN 81 MG PO SCH (11:48)
[2021-03-07] MEDS: CLOPIDOGREL 75 MG TAB PO SCH (11:48)
[2021-03-07] MEDS: METOPROLOL TARTRATE 25 MG TAB PO SCH (11:50)
[2021-03-07] MEDS: CYANOCOBALAMIN 1,000 MCG/ML 1 ML VIAL IM SCH (11:50)
[2021-03-07] MEDS: SODIUM CHLORIDE 0.9% 1,000 ML IV SCH (11:54)
--- NOTE | 2021-03-07 12:57 | P.DS ---
Providers Date of admission: 03/04/21 11:40 Attending physician: Anmol Cifuentes Consults: 03/04/21 12:50 Consult Physician Routine Consulting Provider: [facility] Consult Reason/Comments: Post Interventional patient Do you want consulting provider notified?: Already Contacted 03/05/21 08:18 Consult Physician Urgent Consulting Provider: Sakshi Esposito Consult Reason/Comments: Medical management Do you want consulting provider notified?: Yes 03/05/21 09:46 Consult Physician Routine Consulting Provider: Ramesh Christianson Consult Reason/Comments: emphysema, Lung CA Do you want consulting provider notified?: Already Contacted 03/05/21 13:49 Consult Physician Urgent Consulting Provider: Thao Farrell Consult Reason/Comments: Lung CA Do you want consulting provider notified?: Already Contacted Primary care physician: Federico Neely Hospital Course: This is a 65-year-old male who was admitted to the hospital secondary to STEMI. He underwent cardiac catheterization with stent placement to the circumflex. Patient also has a history of stent placement to the LAD. Echocardiogram completed revealed ejection fraction 40-45%. The patient is doing well postprocedure. The patient was started on Eliquis because there was thoughts that the patient had atrial fibrillation. However, EKG reviewed with Dr. Sierra does not show evidence of atrial fibrillation. Eliquis was d iscontinued. He remains on aspirin and plavix. He is also discharged home on atorvastatin 80 mg at night. Patient's blood pressures have been marginal. Therefore KM/ARB have not been added to his medication regimen. He was deemed stable for discharge home today per Dr. Sierra. Please see EMR for further hospital course details Discharge Diagnosis 1. STEMI, s/p PCI to circumflex 2. Coronary artery disease with previous PCI to LAD Nurse practitioner note has been reviewed by physician. Signing provider agrees with the documented findings, assessment, and plan of care. Plan - Discharge Summary New Discharge Prescriptions: New Ferrous Sulfate [Iron (65 MG Elemental)] 325 mg PO BID-W/MEALS #60 tab Atorvastatin [Lipitor] 80 mg PO HS #90 tab Aspirin 81 mg PO DAILY #90 tab Continue Albuterol Sulfate [Ventolin HFA] 2 puff INHALATION RT-Q6H PRN PRN Reason: Shortness Of Breath Omeprazole 20 mg PO DAILY Nitroglycerin Sl Tabs [Nitrostat] 0.4 mg SUBLINGUAL Q5M PRN PRN Reason: Chest Pain Isosorbide Mononitrate ER [Imdur] 30 mg PO DAILY Tiotropium 18 Mcg/Puff [Spiriva] 1 puff INHALATION RT-DAILY Sucralfate [Carafate] 1 gm PO DAILY Ergocalciferol [Vitamin D2 (1250 Mcg = 11826 Iu)] 1,250 mcg PO ALEGRE Metoprolol Tartrate [Lopressor] 25 mg PO DAILY Folic Acid 1 mg PO DAILY Clopidogrel [Plavix] 75 mg PO DAILY Discontinued Simvastatin [Zocor] 40 mg PO HS Discharge Medication List Albuterol Sulfate [Ventolin HFA] 2 puff INHALATION RT-Q6H PRN 03/04/21 [History] Clopidogrel [Plavix] 75 mg PO DAILY 03/04/21 [History] Ergocalciferol [Vitamin D2 (1250 Mcg = 78099 Iu)] 1,250 mcg PO ALEGRE 03/04/21 [ History] Folic Acid 1 mg PO DAILY 03/04/21 [History] Isosorbide Mononitrate ER [Imdur] 30 mg PO DAILY 03/04/21 [History] Metoprolol Tartrate [Lopressor] 25 mg PO DAILY 03/04/21 [History] Nitroglycerin Sl Tabs [Nitrostat] 0.4 mg SUBLINGUAL Q5M PRN 03/04/21 [History] Omeprazole 20 mg PO DAILY 03/04/21 [History] Sucralfate [Carafate] 1 gm PO DAILY 03/04/21 [History] Tiotropium 18 Mcg/Puff [Spiriva] 1 puff INHALATION RT-DAILY 03/04/21 [History] Aspirin 81 mg PO DAILY #90 tab 03/07/21 [Rx] Atorvastatin [Lipitor] 80 mg PO HS #90 tab 03/07/21 [Rx] Ferrous Sulfate [Iron (65 MG Elemental)] 325 mg PO BID-W/MEALS #60 tab 03/07/21 [Rx] Follow up Appointment(s)/Referral(s): Federico Neely MD [Primary Care Provider] - 1 Week Anmol Cifuentes MD [STAFF PHYSICIAN] - 1 Week
[2021-03-07] MEDS: ACETAMINOPHEN TAB 500 MG TAB PO PRN (13:37)
[2021-03-07 14:19] VITALS: BP 101/53; PULSE 66; TEMP 97.7
--- NOTE | 2021-03-07 14:43 | P.PN ---
Subjective Progress Note Date: 03/07/21 Principal diagnosis: [place] Patient doing well, no chest pain or shortness of breath. Objective - Vital Signs Vital signs: Vital Signs Temp 97.7 F 03/07/21 11:05 Pulse 88 03/07/21 12:02 Resp 16 03/07/21 11:05 BP 101/53 03/07/21 11:05 Pulse Ox 98 03/07/21 11:05 Intake & Output 03/06/21 03/07/21 03/07/21 18:59 06:59 18:59 Intake Total 720 225 480 Output Total 1050 450 240 Balance -330 -225 240 Weight 53.5 kg Intake: IV 75 25 Sodium Chloride 0.9% 1, 75 25 000 ml @ 25 mls/hr IV . Q24H [facility] Rx#:[id number] Intake, IV Titration 285 Amount Sodium Chloride 0.9% 1, 285 000 ml @ 25 mls/hr IV . Q24H [facility] Rx#:[id number] Oral 360 200 480 Output: Urine 1050 450 240 Other: Voiding Method Urinal Urinal ABP, PAP, CO, CI - Last Documented Arterial Blood Pressure 104/46 - Exam Constitutional: No acute distress, conversant, pleasant Eyes:Anicteric sclerae, moist conjunctiva, no lid-lag, PERRLA, ENMT: Oropharynx clear, no erythema, exudates Neck: Supple, FROM, no masses, or JVD, No carotid bruits, No thyromegaly Lungs: Clear to auscultation, Clear to percussion, Normal respiratory effort, no accessory muscle use Cardiovascular: Heart regular in rate and rhythm, No murmurs, gallops, or rubs, No peripheral edema Abdominal: Soft, Nontender, no guarding, rebound or rigidity, Normoactive bowel sounds, No hepatomegaly, No splenomegaly, No palpable mass Skin: Normal temperature, tone, texture, turgor, no induration, No subcutaneous nodules, No rash, lesions, No ulcers Extremities: No digital cyanosis, No clubbing, Pedal pulses intact and symmetrical, Radial pulses intact and symmetrical, No calf tenderness Psychiatric: Alert and oriented to person, place and time, appropriate affect, intact judgement Neuro: Muscles Strength 5/5 in all 4 extremities, Sensation to light touch grossly present throughout, Cranial nerves II-XII grossly intact, no focal sensory deficits - Labs CBC & Chem 7: 11/11/21 06:03 03/06/21 05:18 Labs: Abnormal Lab Results - Last 24 Hours (Table) 03/05/21 03/07/21 Range/Units 15:01 06:03 RBC 3.15 L (4.30-5.90) m/uL Hgb 9.3 L (13.0-17.5) gm/dL Hct 27.6 L (39.0-53.0) % RDW 16.3 H (11.5-15.5) % Retic Count 2.1 H (0.5-2.0) % Iron 10 L (65-175) ug/dL % Saturation 3.82 L (15.00-50.00) Transferrin 185.0 L (204.0-354.0) mg/dL Ferritin 336.0 H (22.0-322.0) ng/mL Vitamin B12 181.0 L (200.0-944.0) pg/mL Assessment and Plan Plan: ST elevation [place] DAPT for 12 months Continue statin Echocardiogram reported, reviewed Cardiology following History of lung cancer. Per pulmonary, unclear if residual finding on the chest x-ray is old scarring versus residual tumor. COPD not in exacerbation When necessary albuterol Spiriva General weakness PT and OT Patient is medically cleared for discharge. Anticipated discharge: Today Disposition: Back home, he told me today he has an apartment.
[2021-03-07 15:15] LABS: Anisocytosis (M) Present; Monocytes # (M) 0.82 k/uL (0-1.0); Neutrophils # (M) 6.48 k/uL (1.3-7.7); Neutrophils % (M) 79 %; Nucleated Red Blood Cells 0 /100 WBC (0-0); Total Cells Counted 100
== END 2021-03-07 15:35 | disposition home or self-care (01) | DRG 251 ==
LOC: EC 11:21 → SUPCPDRO 11:21 → 3SCARD 11:40 → 2SICU 13:01 → 3SCARD 03-06 23:04
PROVIDERS: ADMIT Internal Medicine Cardiovascular Disease; ATTEND Internal Medicine Cardiovascular Disease
PROC: 02703ZZ Dilation of Coronary Artery, One Artery, Percutaneous Approach (ICD-10-PCS; principal; 2021-03-04 17:20)
PROC: 4A023N7 Measurement of Cardiac Sampling and Pressure, Left Heart, Percutaneous Approach (ICD-10-PCS; 2021-03-04 17:20)
PROC: B2111ZZ Fluoroscopy of Multiple Coronary Arteries using Low Osmolar Contrast (ICD-10-PCS; 2021-03-04 17:20)
DX: I21.19 ST elevation (STEMI) myocardial infarction involving other coronary artery of inferior wall (principal); I48.0 Paroxysmal atrial fibrillation; I25.10 Atherosclerotic heart disease of native coronary artery without angina pectoris; D51.0 Vitamin B12 deficiency anemia due to intrinsic factor deficiency; F17.200 Nicotine dependence, unspecified, uncomplicated; J43.9 Emphysema, unspecified; I25.2 Old myocardial infarction; Z95.5 Presence of coronary angioplasty implant and graft; Z85.118 Personal history of other malignant neoplasm of bronchus and lung; Z79.02 Long term (current) use of antithrombotics/antiplatelets; Z79.82 Long term (current) use of aspirin; Z79.899 Other long term (current) drug therapy; Z91.19 Patient's noncompliance with other medical treatment and regimen; Z92.21 Personal history of antineoplastic chemotherapy; Z92.3 Personal history of irradiation; Z59.00 Homelessness unspecified
CPT/HCPCS: 71045; 80053; 82565; 82607; 82728; 82746; 83516; 83540; 83550; 83921; 85025; 85027; 85045; 85610; 85730; 86340; 92920; 92921; 93306; 93458; 94640